=== PATIENT | male | born 1960 | race Caucasian/White ===

== ENCOUNTER → 2016-08-16 | Outpatient (CLI) | payer MEDICARE ==
--- NOTE | 2016-08-16 13:54 | MR ---
EXAMINATION TYPE: MR brain wo/w con DATE OF EXAM: 08/16/2016 1:43 PM COMPARISON: NONE HISTORY: Seizures TECHNIQUE: Multiplanar, multiecho imaging of the brain was obtained with and without intravenous adm inistration of 20 mL intravenous MultiHance. FINDINGS: Midline structures are unremarkable. There is a normal craniocervical junction. Echoplanar diffusion imaging is normal. There are normal vascular flow voids. The orbits are normal. There is no evidence of a CP angle mass lesion There are approximately 8 punctate subcortical 3 to 4 mm lesions on the left and perhaps one or 2 on the right. There is some artifact overlying the valeria. There is no mass effect, midline shift or intra cranial blood. Following intravenous administration of gadolinium I do not see evidence of abnormal enhancement. IMPRESSION: 1. NO ACUTE INTRACRANIAL ABNORMALITY. 2. TINY FLAIR LESIONS IN THE SUBCORTICAL YOON MATTER ON THE LEFT AND PERHAPS ONE OR 2 ON THE RIGHT. T HESE ARE NONSPECIFIC. A DIFFERENTIAL DIAGNOSIS INCLUDES SMALL VESSEL DISEASE, DEMYELINATION, HYPERTEN ISHMAEL, MIGRAINE HEADACHES AND LYME'S DISEASE.
== END | disposition home or self-care (01) ==
LOC: RADMRIMAIN 12:49
PROVIDERS: ATTEND Psychiatry & Neurology Pain Medicine
DX: G40.909 Epilepsy, unspecified, not intractable, without status epilepticus (principal)
CPT/HCPCS: 70553; A9577

== ENCOUNTER 2019-08-14 21:02 | Observation (INO) | payer MEDICARE, OTHER ==
[2019-08-14] MEDS ORDERED: SODIUM CHLORIDE 0.9% 500 ML 500 ML IV STA (21:23)
[2019-08-14 21:41] LABS: Basophils % (A) 1 %; Eosinophils # (A) 0.1 k/uL (0-0.7); Eosinophils % (A) 2 %; Lymphocytes # (A) 1.1 k/uL (1.0-4.8); Lymphocytes % (A) 25 %; MCH 32.7 pg (25.0-35.0); MCV 96.2 fL (80.0-100.0); Mean Platelet Volume 7.1; Monocytes # (A) 0.2 k/uL (0-1.0); Monocytes % (A) 5 %; Neutrophils # (A) 2.8 k/uL (1.3-7.7); Neutrophils % (A) 66 %; Platelet Count 195 k/uL (150-450); RBC 4.58 m/uL (4.30-5.90); RDW 12.7 % (11.5-15.5); WBC 4.3 k/uL (3.8-10.6)
[2019-08-14 21:51] LABS: ALT 21 U/L (4-49); AST 26 U/L (17-59); African American GFR (CKD) >90 (>60 ml/min/1.73 sqM); Albumin 4.5 g/dL (3.5-5.0); Alkaline Phosphatase 83 U/L (38-126); Anion Gap 7 mmol/L; Blood Urea Nitrogen 13 mg/dL (9-20); Calcium 8.7 mg/dL (8.4-10.2); Carbon Dioxide 26 mmol/L (22-30); Chloride 105 mmol/L (98-107); Glucose 109 mg/dL (74-99); Magnesium 1.8 mg/dL (1.6-2.3); Non-African American GFR(CKD) >90 (>60 ml/min/1.73 sqM); Potassium 4.2 mmol/L (3.5-5.1); Sodium 138 mmol/L (137-145); Total Bilirubin 0.6 mg/dL (0.2-1.3); Total Protein 6.6 g/dL (6.3-8.2)
--- NOTE | 2019-08-14 21:52 | XR ---
EXAMINATION TYPE: XR chest 2V DATE OF EXAM: 08/14/2019 COMPARISON: NONE HISTORY: Chest pain. TECHNIQUE: Frontal and lateral views of the chest are obtained. FINDINGS: Low lung volumes are present. There is no focal air space opacity, pleural effusion, or pne umothorax seen. The cardiac silhouette size is upper limits of normal. Overlying EKG leads. There is defibrillator battery pack without visualized defibrillator wires left anterior chest wall. IMPRESSION: No acute pulmonary process.
[2019-08-14 21:54] LABS: D-Dimer <0.17 mg/L FEU (<0.60); Partial Thromboplastin Time 24.7 sec (22.0-30.0); Prothrombin Time 10.1 sec (9.0-12.0)
[2019-08-14] MEDS ORDERED: NITROGLYCERIN SL TABS 0.4 MG TAB SUBLINGUAL PRN (22:52)
--- NOTE | 2019-08-14 22:58 | ED ---
General Adult HPI - General Source: EMS, RN notes reviewed, old records reviewed Mode of arrival: EMS Limitations: no limitations <Yayo Daniels - Last Filed: 08/14/19 22:51> <Braden Culver - Last Filed: 08/14/19 23:31> - General Chief complaint: Shortness of Breath Stated complaint: SOB Time Seen by Provider: 08/14/19 21:05 - History of Present Illness Initial comments: 59-year-old male patient past history significant for seizure disorder, patient reports that he had some sort of potential heart attack 15 years ago however has no stent placements during a seizure. Patient does have a defibrillator placed. Patient forced to beginning at approximately 3:00 today he had what he describes as substernal chest pressure, associated shortness of breath. Patient reports that this persisted until receive nitro by EMS. At time of evaluation patient is pain free. Systemic: Pt denies fatigue, fever/chills, rash. Pt denies weakness, night sweats, weight loss. Neuro: Pt denies headache, visual disturbances, syncope or pre-syncope. HEENT: Pt denies ocular discharge or irritation, otalgia, rhinorrhea, phar yngitis or notable lymphadenopathy. Cardiopulmonary: Pt denies heart palpitations. Abdominal/GI: Pt denies abdominal pain, n/v/d. : Pt denies dysuria, burning w/ urination, frequency/urgency. Denies new onset urinary or bowel incontinence. MSK: Pt denies myalgia, loss of strength or function in extremities. Neuro: Pt denies new onset weakness, paresthesias. (Yayo Daniels) - Related Data Allergies Allergy/AdvReac Type Severity Reaction Status Date / Time No Known Allergies Allergy Verified 08/14/19 21:24 Review of Systems ROS Other: All systems not noted in ROS Statement are negative. <Yayo Daniels - Last Filed: 08/14/19 22:51> ROS Other: All systems not noted in ROS Statement are negative. <Braden Culver - Last Filed: 08/14/19 23:31> ROS Statement: Those systems with pertinent positive or pertinent negative responses have been documented in the HPI. Past Medical History Past Medical History: Asthma, Myocardial Infarction ([place]), Seizure Disorder History of Any Multi-Drug Resistant Organisms: ESBL Date of last positivie culture/infection: 10/24/16 MDRO Source:: buttock Past Surgical History: Tonsillectomy Additional Past Surgical History / Comment(s): deep brain stimulator for seizures Past Psychological History: Depression, PTSD Smoking Status: Never smoker Past Alcohol Use History: Occasional Past Drug Use History: None Reported <JeremiahYayo Maicol - Last Filed: 08/14/19 22:51> General Exam Limitations: no limitations <Yayo Daniels - Last Filed: 08/14/19 22:51> - General Exam Comments Initial Comments: Constitutional: NAD, AOX3, Pt has pleasant affect. HEENT: NC/AT, trachea midline, neck supple, no lymphadenopathy. Posterior pharynx non erythematous, without exudates. External ears appear normal, without discharge. Mucous membranes moist. Eyes PERRLA, EOM intact. There is no scleral icterus. No pallor noted. Cardiopulmonary: RRR, no murmurs, rubs or gallops, no JVD noted. Lungs CTAB in anterior and posterior doherty. No peripheral edema. Abdominal exam: Abdomen soft and non-distended. Abdomen non-tender to palpation in all 4 quadrants. Bowel sounds active in LLQ. No hepatosplenomegaly. No ecchymosis Neuro: CN II-XII grossly intact. No nuchal rigidity. No raccon eyes, no patrick sign, no hemotympanum. No cervical spinal tenderness. MSK: No posterior calf tenderness bilaterally, homans sign negative bilaterally. Posterior tibialis and radial pulse +2 bilaterally. Sensation intact in upper and lower extremities. Full active ROM in upper and lower extremities, 5/5 stregnth. (Yayo Daniels) Course <Braden Culver - Last Filed: 08/14/19 23:31> Vital Signs 08/14/19 08/14/19 21:05 22:10 Temperature 97.0 F L Pulse Rate 65 62 Respiratory 20 18 Rate Blood Pressure 140/73 132/69 O2 Sat by Pulse 96 96 Oximetry - Reevaluation(s) Reevaluation #1: 08/14/19 23:30 PA supervision: I proceeded to evaluate this case patient did present with complains of chest pain. The presentation is consistent with ACS. Patient be admitted the case is discussed with Dr. Vin Cobos's [employer] GATE KEEPER (Braden Culver) Medical Decision Making - Lab Data Result diagrams: 08/14/19 21:16 08/14/19 21:16 - EKG Data -: EKG Interpreted by Me (and Dr. Culver ) <Yayo Daniels - Last Filed: 08/14/19 22:51> - Lab Data Result diagrams: 08/14/19 21:16 08/14/19 21:16 <Braden Culver - Last Filed: 08/14/19 23:31> - Medical Decision Making 59-year-old male patient past history significant for seizure disorder, patient reports that he had some sort of potential heart attack 15 years ago however has no stent placements during a seizure. Patient does have a defibrillator placed. Patient forced to beginning at approximately 3:00 today he had what he describes as substernal chest pressure, associated shortness of breath. Patient reports that this persisted until receive nitro by EMS. At time of evaluation patient is pain free. Patient relatively stable, afebrile. Physical exam densely acute pathology. EKG is nonischemic. Laboratory investigations are obtained and are overall noncompressive. D-dimer is negative. Troponin is neg ative. CXR revealed no acute process. Patient continues to be pain-free. Patient will be admitted for serial troponins and cardiology evaluation tomorrow. Case discussed with Dr. Culver. (Yayo Daniels) - Lab Data Lab Results 08/14/19 08/14/19 08/14/19 Range/Units 21:16 21:16 21:16 WBC 4.3 (3.8-10.6) k/uL RBC 4.58 (4.30-5.90) m/uL Hgb 15.0 (13.0-17.5) gm/dL Hct 44.0 (39.0-53.0) % MCV 96.2 (80.0-100.0) fL MCH 32.7 (25.0-35.0) pg MCHC 34.0 (31.0-37.0) g/dL RDW 12.7 (11.5-15.5) % Plt Count 195 (150-450) k/uL Neutrophils % 66 % Lymphocytes % 25 % Monocytes % 5 % Eosinophils % 2 % Basophils % 1 % Neutrophils # 2.8 (1.3-7.7) k/uL Lymphocytes # 1.1 (1.0-4.8) k/uL Monocytes # 0.2 (0-1.0) k/uL Eosinophils # 0.1 (0-0.7) k/uL Basophils # 0.0 (0-0.2) k/uL PT 10.1 (9.0-12.0) sec INR 1.0 (<1.2) APTT 24.7 (22.0-30.0) sec D-Dimer <0.17 (<0.60) mg/L FEU Sodium 138 (137-145) mmol/L Potassium 4.2 (3.5-5.1) mmol/L Chloride 105 (98-107) mmol/L Carbon Dioxide 26 (22-30) mmol/L Anion Gap 7 mmol/L BUN 13 (9-20) mg/dL Creatinine 0.90 (0.66-1.25) mg/dL Est GFR (CKD-EPI)AfAm >90 (>60 ml/min/1.73 sqM) Est GFR (CKD-EPI)NonAf >90 (>60 ml/min/1.73 sqM) Glucose 109 H (74-99) mg/dL Calcium 8.7 (8.4-10.2) mg/dL Magnesium 1.8 (1.6-2.3) mg/dL Total Bilirubin 0.6 (0.2-1.3) mg/dL AST 26 (17-59) U/L ALT 21 (4-49) U/L Alkaline Phosphatase 83 (38-126) U/L Troponin I (0.000-0.034) ng/mL NT-Pro-B Natriuret Pep pg/mL Total Protein 6.6 (6.3-8.2) g/dL Albumin 4.5 (3.5-5.0) g/dL 08/14/19 08/14/19 Range/Units 21:16 21:16 WBC (3.8-10.6) k/uL RBC (4.30-5.90) m/uL Hgb (13.0-17.5) gm/dL Hct (39.0-53.0) % MCV (80.0-100.0) fL MCH (25.0-35.0) pg MCHC (31.0-37.0) g/dL RDW (11.5-15.5) % Plt Count (150-450) k/uL Neutrophils % % Lymphocytes % % Monocytes % % Eosinophils % % Basophils % % Neutrophils # (1.3-7.7) k/uL Lymphocytes # (1.0-4.8) k/uL Monocytes # (0-1.0) k/uL Eosinophils # (0-0.7) k/uL Basophils # (0-0.2) k/uL PT (9.0-12.0) sec INR (<1.2) APTT (22.0-30.0) sec D-Dimer (<0.60) mg/L FEU Sodium (137-145) mmol/L Potassium (3.5-5.1) mmol/L Chloride (98-107) mmol/L Carbon Dioxide (22-30) mmol/L Anion Gap mmol/L BUN (9-20) mg/dL Creatinine (0.66-1.25) mg/dL Est GFR (CKD-EPI)AfAm (>60 ml/min/1.73 sqM) Est GFR (CKD-EPI)NonAf (>60 ml/min/1.73 sqM) Glucose (74-99) mg/dL Calcium (8.4-10.2) mg/dL Magnesium (1.6-2.3) mg/dL Total Bilirubin (0.2-1.3) mg/dL AST (17-59) U/L ALT (4-49) U/L Alkaline Phosphatase (38-126) U/L Troponin I <0.012 (0.000-0.034) ng/mL NT-Pro-B Natriuret Pep 100 pg/mL Total Protein (6.3-8.2) g/dL Albumin (3.5-5.0) g/dL - EKG Data EKG Comments: Ventricular rate 66, plan: 70, QRS 84, QT/QTC 380/398. Normal sinus rhythm, nonspecific T-wave abnormality. No concern for acute ischemia at this time. (Yayo Daniels) Disposition Is patient prescribed a controlled substance at d/c from ED?: No <Yayo Daniels - Last Filed: 08/14/19 22:51> <Braden Culver - Last Filed: 08/14/19 23:31> Clinical Impression: Chest pain Disposition: ADMITTED IP TO THIS HOSP Condition: Serious
[2019-08-15] MEDS: HEPARIN SODIUM,PORCINE 5,000 UNIT/ML 1 ML VIAL SQ SCH ×4 (01:14→23:39)
[2019-08-15] MEDS: MORPHINE SULFATE 4 MG/ML SYRINGE IVP PRN ×2 (01:14→05:53)
[2019-08-15 03:14] LABS: Cholesterol 164 mg/dL (<200); HDL Cholesterol 27 mg/dL (40-60); LDL Cholesterol,Calculated 95 mg/dL (0-99); Triglycerides 212 mg/dL (<150)
[2019-08-15] MEDS ORDERED: ASPIRIN 325 MG TAB PO SCH (09:00)
[2019-08-15] MEDS: PANTOPRAZOLE 40 MG TABLET PO SCH (10:03)
[2019-08-15] MEDS ORDERED: OXcarbazepine 300 MG TAB PO PRN (10:24)
--- NOTE | 2019-08-15 11:35 | P.HPIM ---
History of Present Illness 9-year-old male with known history of seizure disorder came in with complains of chest pain on the right side of the chest shoulder pain as well as a upper and lower thoracic back pain. Patient's pain is sharp in nature nonradiating and associated lightheadedness shortness of breath not associated with food nonpleuritic in nature. EKG showed some nonspecific T-wave changes beyond that no other significant abnormality patient is mildly sinus bradycardic. Troponins are negative. Review of Systems REVIEW OF SYSTEMS: CONSTITUTIONAL: No fever, no malaise, no fatigue. HEENT: No recent visual problems or hearing problems. Denied any sore throat. CARDIOVASCULAR: No orthopnea, PND, no palpitations, no syncope. PULMONARY: No shortness of breath, no cough, no hemoptysis. GASTROINTESTINAL: No diarrhea, no nausea, no vomiting, no abdominal pain. NEUROLOGICAL: No headaches, no weakness, no numbness. HEMATOLOGICAL: Denies any bleeding or petechiae. GENITOURINARY: Denies any burning micturition, frequency, or urgency. MUSCULOSKELETAL/RHEUMATOLOGICAL: As mentioned in HPI ENDOCRINE: Denies any polyuria or polydipsia. The rest of the 14-point review of systems is negative. Past Medical History Past Medical History: Asthma, Cancer, Myocardial Infarction ([place]), Seizure Disorder Additional Past Medical History / Comment(s): vocal cord cancer Last Myocardial Infarction Date:: 2004 History of Any Multi-Drug Resistant Organisms: ESBL Date of last positivie culture/infection: 10/24/16 MDRO Source:: buttock Past Surgical History: Tonsillectomy Additional Past Surgical History / Comment(s): deep brain stimulator for seizures Past Psychological History: Depression, PTSD Smoking Status: Never smoker Past Alcohol Use History: Occasional Past Drug Use History: None Reported Medications and Allergies Home Medications Medication Instructions Recorded Confirmed Type Citalopram Hydrobromide 40 mg PO DAILY 08/15/19 08/15/19 History [Citalopram HBr] Donepezil [Aricept] 20 mg PO HS 08/15/19 08/15/19 History L.acidoph,Paracasei, B.lactis 1 cap PO DAILY 08/15/19 08/15/19 History [Probiotic] Multivitamins, Thera [Multivitamin 1 tab PO DAILY 08/15/19 08/15/19 History (formulary)] OXcarbazepine 600 mg PO TID PRN 08/15/19 08/15/19 History Prazosin [Minipress] 1 mg PO HS 08/15/19 08/15/19 History Primidone [Mysoline] 200 mg PO HS 08/15/19 08/15/19 History Topiramate [Topamax] 300 mg PO DAILY 08/15/19 08/15/19 History lamoTRIgine 200 mg PO BID 08/15/19 08/15/19 History lamoTRIgine [LaMICtal] 50 mg PO DAILY 08/15/19 08/15/19 History Allergies Allergy/AdvReac Type Severity Reaction Status Date / Time Penicillins Allergy Anaphylaxis Verified 08/15/19 09:34 prednisone Allergy Anaphylaxis Verified 08/15/19 09:34 Physical Exam Vitals: Vital Signs Temp Pulse Pulse Resp BP BP BP 08/15/19 08:06 97.9 F 61 18 110/61 08/15/19 04:54 97.8 F 56 L 18 114/57 08/15/19 00:30 97.7 F 60 18 125/60 08/14/19 22:10 62 18 132/69 08/14/19 21:05 97.0 F L 65 20 140/73 Pulse Ox 08/15/19 08:06 93 L 08/15/19 04:54 95 08/15/19 00:30 98 08/14/19 22:10 96 08/14/19 21:05 96 Intake and Output 08/14/19 08/15/19 08/15/19 22:59 06:59 14:59 Other: Voiding Method Toilet # Voids 1 Weight 106.594 kg 111 kg PHYSICAL EXAMINATION: GENERAL: The patient is alert and oriented x3, not in any acute distress. Well developed, well nourished. HEENT: Pupils are round and equally reacting to light. EOMI. No scleral icterus. No conjunctival pallor. Normocephalic, atraumatic. No pharyngeal erythema. No thyromegaly. CARDIOVASCULAR: S1 and S2 present. No murmurs, rubs, or gallops. PULMONARY: Chest is clear to auscultation, no wheezing or crackles. ABDOMEN: Soft, nontender, nondistended, normoactive bowel sounds. No palpable organomegaly. MUSCULOSKELETAL: Patient has reproducible chest pain that is a subtle spasm and tenderness in the throat thoracic spine area. Patient active and. Passive m otions of right shoulder restricted patient cannot lift his arm beyond 90 EXTREMITIES: No cyanosis, clubbing, or pedal edema. NEUROLOGICAL: Gross neurological examination did not reveal any focal deficits. SKIN: No rashes. Results CBC & Chem 7: 08/14/19 21:16 08/14/19 21:16 Labs: Abnormal Lab Results - Last 24 Hours (Table) 08/14/19 08/15/19 Range/Units 21:16 02:47 Glucose 109 H (74-99) mg/dL Triglycerides 212 H (<150) mg/dL HDL Cholesterol 27 L (40-60) mg/dL Thrombosis Risk Factor Assmnt - Choose All That Apply Any of the Below Risk Factors Present?: Yes Each Factor Represents 1 point: Age 41-60 years, Obesity (BMI >25) Thrombosis Risk Factor Assessment Total Risk Factor Score: 2 Thrombosis Risk Factor Assessment Level: Low Risk Assessment and Plan Plan: -Chest pain: Appears to be musculoskeletal noncardiac. He was consulted further management as per them be ruled out acute coronary syndromes. -Right shoulder pain and thoracic spine degenerative disc disease: Patient will be started on nonsteroidal anti-inflammatory medications and concerned with rotator cuff injury, chronic surgery will be consulted and this nonemergent can be seen in the clinic as well. -Asthma without any acute exception -seizure disorder: Patient is in the brainstem later for this and will be resumed on his home medications for his seizures -PTSD and depression -History of laryngeal cancer in the past
--- NOTE | 2019-08-15 11:58 | XR ---
EXAMINATION TYPE: XR shoulder complete RT , 3 VIEWS DATE OF EXAM ORDERED: 08/15/2019 HISTORY: shoulder pain. COMPARISON: None. FINDINGS: No fracture, dislocation or other acute osseous lesion is seen. IMPRESSION: NO ACUTE OSSEOUS LESION.
--- NOTE | 2019-08-15 11:59 | XR ---
EXAMINATION TYPE: XR thoracic spine complete , , 3 VIEWS DATE OF EXAM ORDERED: 08/15/2019 HISTORY: back pain. COMPARISON: None. FINDINGS: There is a mild levoscoliosis. There is degenerative disc disease and hypertrophic spondylosis in the lower cervical spine. Within the dorsal spine, vertebral body height and alignment are maintained. No fractures are seen. T he pedicles are intact. Paraspinal soft tissues are normal. IMPRESSION: NO ACUTE OSSEOUS LESION.
--- NOTE | 2019-08-15 12:31 | CONS ---
CONSULTATION CHIEF COMPLAINT: Chest pain. HISTORY OF PRESENT ILLNESS: This is a 59-year-old gentleman with history of seizure disorder who has a stimulator, came to the hospital complaining of chest pain. His chest discomfort is sharp, precordial, atypical, and at the time of my evaluation, appears pain free and is hemodynamically stable. An EKG on him shows sinus bradycardia with non-specific ST-T wave changes. I advised the patient to undergo an echocardiogram and a dobutamine echo tomorrow. If these are negative, he may be discharged home. SOCIAL HISTORY: Denies current smoking, EtOH abuse or drug abuse. PAST MEDICAL HISTORY: Past medical history is negative for hypertension, diabetes, dyslipidemia; is significant for seizures. CURRENT MEDICATIONS: Current medications include Aricept, citalopram, Minipress, Mysoline, Topamax, and Lamictal. ALLERGIES: ALLERGIC TO PENICILLIN AND PREDNISONE. FAMILY HISTORY: Negative for premature coronary artery disease. REVIEW OF SYSTEMS: Unremarkable other than what has been mentioned so far. EXAM: The patient is comfortable at rest. Vital signs are stable. There is no jugular venous distention. Chest exam reveals good air entry bilaterally. Heart exam reveals first and second heart sounds. No gallop. No murmur. Abdomen is soft, nontender. Exam of the extremities did not reveal any edema. Peripheral pulses are felt. LABORATORY DATA: Labs show that three sets of troponins are negative. ASSESSMENT: Precordial chest pain, sharp, atypical, probably noncardiac. PLAN: The patient will undergo a stress test tomorrow. If this is negative, send him home. MMODL / IJN: [id number] /
[2019-08-15] MEDS: KETOROLAC 30 MG/ML 1 ML VIAL IVP PRN (15:46)
[2019-08-15] MEDS: lamoTRIgine 100 MG TAB PO SCH (20:19)
[2019-08-15] MEDS ORDERED: DONEPEZIL 10 MG TAB PO SCH (21:00)
[2019-08-15] MEDS ORDERED: PRAZOSIN 1 MG CAP PO SCH (21:00)
[2019-08-15] MEDS ORDERED: PRIMIDONE 50 MG TAB PO SCH (21:00)
[2019-08-16 07:04] VITALS: RESP 18
[2019-08-16] MEDS ORDERED: DOBUTamine DRIP for NUC MED 500 MG in DEXTROSE/WATER 1 250ML.BAG IV ONE (08:15)
[2019-08-16] MEDS: lamoTRIgine 100 MG TAB PO SCH (08:26)
[2019-08-16] MEDS: PANTOPRAZOLE 40 MG TABLET PO SCH (08:26)
[2019-08-16] MEDS: HEPARIN SODIUM,PORCINE 5,000 UNIT/ML 1 ML VIAL SQ SCH ×2 (08:27→16:06)
[2019-08-16] MEDS: KETOROLAC 30 MG/ML 1 ML VIAL IVP PRN (08:36)
[2019-08-16] MEDS ORDERED: lamoTRIgine 25 MG TAB PO SCH (09:00)
[2019-08-16] MEDS ORDERED: ASPIRIN 81 MG PO SCH (09:00)
[2019-08-16] MEDS ORDERED: TOPIRAMATE 100 MG TAB PO SCH (09:00)
[2019-08-16] MEDS ORDERED: CITALOPRAM HYDROBROMIDE 20 MG TAB PO SCH (09:00)
--- NOTE | 2019-08-16 09:45 | ECHOF ---
Referral Reason:chest pain MEASUREMENTS -------- HEIGHT: 180.3 cm WEIGHT: 110.7 kg BP: RVIDd: 2.9 cm (< 3.3) IVSd: 1.2 cm (0.6 - 1.1) LVIDd: 4.1 cm (3.9 - 5.3) LVPWd: 1.4 cm (0.6 - 1.1) IVSs: 2.1 cm LVIDs: 1.9 cm LVPWs: 2.4 cm Ao Diam: 3.9 cm (2.0 - 3.7) AV Cusp: 2.7 cm (1.5 - 2.6) LA Diam: 3.2 cm (2.7 - 3.8) MV EXCURSION: 21.020 mm (> 18.000) MV EF SLOPE: 93 mm/s (70 - 150) EPSS: 0.3 cm MV E Ed: 0.62 m/s MV DecT: 173 ms MV A De: 0.65 m/s MV E/A Ratio: 0.96 RAP: 5.00 mmHg RVSP: 26.90 mmHg FINDINGS -------- Sinus rhythm. This was a technically good study. The left ventricular size is normal. There is mild concentric left ventricular hypertrophy. Overa ll left ventricular systolic function is normal with, an EF between 55 - 60 %. The right ventricle is normal in size. The left atrial size is normal. The right atrial size is normal. The aortic valve is trileaflet, and appears structurally normal. No aortic stenosis or regurgitation. The mitral valve is normal. There is trace mitral regurgitation. The tricuspid valve appears structurally normal. Trace tricuspid regurgitation present. Right rosemary tricular systolic pressure is normal at < 35 mmHg. Trace/mild (physiologic) pulmonic regurgitation. The aortic root is dilated measuring 3.9 cm. Normal inferior vena cava with normal inspiratory collapse consistent with estimated right atrial pre ssure of 5 mmHg. There is no pericardial effusion. CONCLUSIONS -------- 1. Sinus rhythm. 2. This was a technically good study. 3. The left ventricular size is normal. 4. There is mild concentric left ventricular hypertrophy. 5. Overall left ventricular systolic function is normal with, an EF between 55 - 60 %. 6. The left atrial size is normal. 7. The aortic valve is trileaflet, and appears structurally normal. No aortic stenosis or regurgitati on. 8. There is trace mitral regurgitation. 9. Trace tricuspid regurgitation present. 10. Right ventricular systolic pressure is normal at < 35 mmHg. 11. Trace/mild (physiologic) pulmonic regurgitation. 12. The aortic root is dilated measuring 3.9 cm 13. Normal inferior vena cava with normal inspiratory collapse consistent with estimated right atrial pressure of 5 mmHg. 14. There is no pericardial effusion. INFORMATION MANAGEMENT MANAGER: Kalina Navarro RDCS
--- NOTE | 2019-08-16 10:17 | P.PN ---
Subjective This is a 59-year-old male past medical history significant for asthma, seizures and depression. He is seen and examined laying flat in bed in no acute distress. He continues to have reproducible right sided chest pain that is worse with deep inspiration and worsened by palpation of the area. He denies shortness of breath, dizziness or palpitations. Blood pressure 117/56 heart rate 57 afebrile maintaining oxygen saturation on room air. GENERAL: Well-appearing, well-nourished and in no acute distress. NECK: Supple without JVD or thyromegaly. LUNGS: Breath sounds clear to auscultation bilaterally. Respiration equal and unlabored. No wheezes, rales or rhonchi. HEART: Regular rate and rhythm without murmurs, rubs or gallops. S1 and S2 heard. EXTREMITIES: Normal range of motion, no edema. No clubbing or cyanosis. Peripheral pulses intact. ASSESSMENT Chest pain, atypical. Reproducible, likely related to underlying musculoskel etal injury. PLAN Proceed with dobutamine stress echocardiogram as previously recommended. If stress test is normal he may be discharged from a cardiac perspective. Follow-up in the office with Dr. Abrams in 2-3 weeks. Nurse Practitioner note has been reviewed, I agree with a documented findings an d plan of care. Patient was seen and examined. Objective - Vital Signs Vital signs: Vital Signs Temp 97.8 F 08/16/19 07:02 Pulse 57 L 08/16/19 08:00 Resp 18 08/16/19 08:00 BP 117/56 08/16/19 07:02 Pulse Ox 94 L 08/16/19 07:02 Intake & Output 08/15/19 08/16/19 08/16/19 18:59 06:59 18:59 Intake Total 860 240 Balance 860 240 Weight 107.9 kg Intake: Oral 660 240 Other 200 Other: Voiding Method Toilet Toilet Toilet - Labs CBC & Chem 7: 08/14/19 21:16 08/14/19 21:16
--- NOTE | 2019-08-16 10:28 | ECHOS ---
STRESS ECHOCARDIOGRAM INDICATIONS: Chest pain. MEDICATIONS: Aricept, Citalopram, Minipress, Mysoline, Topamax, Lamictal. BASELINE HEART RATE: 53 BASELINE BLOOD PRESSURE: 130/69 MAXIMUM HEART RATE: 140 MAXIMUM BLOOD PRESSURE: 183/44 85% MPHR: 137 100% MPHR: 161 MAXIMUM STAGE REACHED: 4 TOTAL EXERCISE TIME: 12:00 CLINICAL INFORMATION: Baseline rhythm is a sinus mechanism, rate 53, normal axis and intervals, normal echocardiogram. Baseline blood pressure 130/69 mmHg. Patient received infusion of dobutamine per protocol, peak rate 140 beats per minute which is equal to 87% maximum predicted heart rate. Peak blood pressure 183/44 mmHg. Electrocardiograph monitoring revealed rare PVCs. There was no evidence of diagnostic ischemic ST deviation. FINDINGS: Baseline echocardiogram revealed normal wall motion. At peak exercise, there was normal wall motion augmentation with no hypokinesis or dyskinesis. CONCLUSION: 1. Normal echocardiograph response to dobutamine infusion with rare premature ventricular contractions. 2. Normal stress echocardiogram with no evidence of stress-induced ischemia. MMODL / IJN: [id number] /
--- NOTE | 2019-08-16 11:46 | P.DS ---
Providers Date of admission: 08/14/19 22:56 Attending physician: Gavi Banuelos Consults: 08/14/19 22:52 Consult Physician Urgent Consulting Provider: Kell Stacy Consult Reason/Comments: chest pain Do you want consulting provider notified?: Yes 08/15/19 11:20 Consult Physician Routine Consulting Provider: Betty Benitez Consult Reason/Comments: shoulder pain Do you want consulting provider notified?: Yes Primary care physician: Tennille Guaman Hospital Course: 59-year-old male came in with compensative from right-sided chest pain appears to be musculoskeletal patient has shoulder pain as well as back pain. Shoulder x-ray and back x-ray essentially within normal limits. Rule out a concurrent syndromes and patient had a dobutamine stress test which did not show any inducible ischemia patient will be evaluated by arthritic surgery may need an outpatient MRI of the right shoulder. Patient will be discharged after evaluation by orthopedic surgery on meloxicam and the Pepcid. PHYSICAL EXAMINATION: GENERAL: The patient is alert and oriented x3, not in any acute distress. Well developed, well nourished. HEENT: Pupils are round and equally reacting to light. EOMI. No scleral icterus. No conjunctival pallor. Normocephalic, atraumatic. No pharyngeal erythema. No thyromegaly. CARDIOVASCULAR: S1 and S2 present. No murmurs, rubs, or gallops. PULMONARY: Chest is clear to auscultation, no wheezing or crackles. ABDOMEN: Soft, nontender, nondistended, normoactive bowel sounds. No palpable organomegaly. MUSCULOSKELETAL: Patient has reproducible chest pain that is a subtle spasm and tenderness in the throat thoracic spine area. Patient active and. Passive motions of right shoulder restricted patient cannot lift his arm beyond 90 EXTREMITIES: No cyanosis, clubbing, or pedal edema. NEUROLOGICAL: Gross neurological examination did not reveal any focal deficits. SKIN: No rashes. His pain in the shoulder is actually bit better today Rest the medical problems and hospitalization course refer to my HPI from yesterday Patient Condition at Discharge: Serious Plan - Discharge Summary New Discharge Prescriptions: New Meloxicam [Mobic] 15 mg PO DAILY PRN #30 tab PRN Reason: Pain Famotidine [Pepcid] 20 mg PO BID #30 tablet Continue lamoTRIgine 200 mg PO BID Donepezil [Aricept] 20 mg PO HS Citalopram Hydrobromide [Citalopram HBr] 40 mg PO DAILY Primidone [Mysoline] 200 mg PO HS Prazosin [Minipress] 1 mg PO HS OXcarbazepine 600 mg PO TID PRN PRN Reason: Seizures lamoTRIgine [LaMICtal] 50 mg PO DAILY Topiramate [Topamax] 300 mg PO DAILY Multivitamins, Thera [Multivitamin (formulary)] 1 tab PO DAILY L.acidoph,Paracasei, B.lactis [Probiotic] 1 cap PO DAILY Discharge Medication List Citalopram Hydrobromide [Citalopram HBr] 40 mg PO DAILY 08/15/19 [History] Donepezil [Aricept] 20 mg PO HS 08/15/19 [History] L.acidoph,Paracasei, B.lactis [Probiotic] 1 cap PO DAILY 08/15/19 [History] Multivitamins, Thera [Multivitamin (formulary)] 1 tab PO DAILY 08/15/19 [History] OXcarbazepine 600 mg PO TID PRN 08/15/19 [History] Prazosin [Minipress] 1 mg PO HS 08/15/19 [History] Primidone [Mysoline] 200 mg PO HS 08/15/19 [History] Topiramate [Topamax] 300 mg PO DAILY 08/15/19 [History] lamoTRIgine 200 mg PO BID 08/15/19 [History] lamoTRIgine [LaMICtal] 50 mg PO DAILY 08/15/19 [History] Famotidine [Pepcid] 20 mg PO BID #30 tablet 08/16/19 [Rx] Meloxicam [Mobic] 15 mg PO DAILY PRN #30 tab 08/16/19 [Rx] Follow up Appointment(s)/Referral(s): Rowena Null MD [Primary Care Provider] - 3 Days Betty Benitez DO [Doctor of Osteopathic Medicine] - 1 Week Shailesh Abrams MD [STAFF PHYSICIAN] - 09/02/19 3:45 pm
[2019-08-16 15:51] VITALS: BP 119/63; PULSE 68; TEMP 98
--- NOTE | 2019-08-16 15:52 | P.CNOR ---
<Omi Vinson - Last Filed: 08/16/19 15:49> History of Present Illness - [facility] Consult date: 08/16/19 History of present illness: This patient is a 59-year-old male past medical history of epilepsy that presented to [facility] 08/14/19 with complaints of chest pain. The patient also complained of right shoulder pain upon arrival to the emergency department, x-rays were taken of the right shoulder, which revealed no abnormalities. The patient was admitted to the observation unit under the care of internal medicine with a consult placed to orthopedic surgery for further evaluation of his right shoulder pain. At the time of my exam, the patient complains of pain along the right anterior chest wall with radiation into the right upper arm. He states that this pain began around the same time as his left sided chest pain, although his left-sided chest pain has been relieved with medication. The right sided chest pain has remained constant since admission. The pain is constant, although it is exacerbated with movement of the right shoulder. The pain is in not changed with deep breathing. He denies trauma to the right chest for right shoulder. He denies swelling, erythema, ecchymosis of this area. He denies neck pain. He denies numbness or tingling of the right upper extremity. Patient denies fevers, chills, nausea, vomiting. He has no additional complaints at the time of exam. Vital signs stable. Past Medical History Past Medical History: Asthma, Cancer, Myocardial Infarction ([place]), Seizure Disorder Additional Past Medical History / Comment(s): vocal cord cancer Last Myocardial Infarction Date:: 2004 History of Any Multi-Drug Resistant Organisms: ESBL Year Discovered:: 10/24/16 MDRO Source:: buttock Past Surgical History: Tonsillectomy Additional Past Surgical History / Comment(s): deep brain stimulator for s eizures Past Psychological History: Depression, PTSD Smoking Status: Never smoker Past Alcohol Use History: Occasional Past Drug Use History: None Reported Medications and Allergies Home Medications Medication Instructions Recorded Confirmed Type Citalopram Hydrobromide 40 mg PO DAILY 08/15/19 08/15/19 History [Citalopram HBr] Donepezil [Aricept] 20 mg PO HS 08/15/19 08/15/19 History L.acidoph,Paracasei, B.lactis 1 cap PO DAILY 08/15/19 08/15/19 History [Probiotic] Multivitamins, Thera [Multivitamin 1 tab PO DAILY 08/15/19 08/15/19 History (formulary)] OXcarbazepine 600 mg PO TID PRN 08/15/19 08/15/19 History Prazosin [Minipress] 1 mg PO HS 08/15/19 08/15/19 History Primidone [Mysoline] 200 mg PO HS 08/15/19 08/15/19 History Topiramate [Topamax] 300 mg PO DAILY 08/15/19 08/15/19 History lamoTRIgine 200 mg PO BID 08/15/19 08/15/19 History lamoTRIgine [LaMICtal] 50 mg PO DAILY 08/15/19 08/15/19 History Famotidine [Pepcid] 20 mg PO BID #30 tablet 08/16/19 Rx Meloxicam [Mobic] 15 mg PO DAILY PRN #30 tab 08/16/19 Rx Allergies Allergy/AdvReac Type Severity Reaction Status Date / Time Penicillins Allergy Anaphylaxis Verified 08/15/19 09:34 prednisone Allergy Anaphylaxis Verified 08/15/19 09:34 Physical Examination On examination, the patient is sitting up in bed in no apparent distress. He is alert and oriented 3. His head appears normocephalic and atraumatic. His breathing appears nonlabored. On inspection of the right chest, right shoulder there is no ecchymosis, erythema, skin discoloration, swelling. There are no o pen wounds or lacerations. There is moderate pain on palpation of the pectoralis major. No tenderness to palpation of the right clavicle, right shoulder, right upper arm, elbow, forearm, wrist. There is no pain on palpation of the proximal biceps tendon. Patient is able to achieve 90 of forward flexion, 90 of abduction of the shoulder. Patient states he cannot achieve more motion secondary to pain in the pectoralis major. There is no significant pain with empty can testing. No pain with passive range of motion of the elbow or wrist. Motor and sensory function appear to be intact of the right upper extremity. Right upper extremity is warm and well-perfused with brisk capillary refill distally. Right radial pulse +2. Results Right shoulder x-ray 08/15/19: No acute fractures or dislocations. - Labs Labs: H & H 08/14/19 Range/Units 21:16 Hgb 15.0 (13.0-17.5) gm/dL Hct 44.0 (39.0-53.0) % Coagulation 08/14/19 Range/Units 21:16 INR 1.0 (<1.2) Result Diagrams: 08/14/19 21:16 08/14/19 21:16 Assessment and Plan Assessment: Possible pectoralis major strain, right. Plan: - I explained the clinical and imaging findings with the patient. The patient was also discussed with Dr. Dotson. Recommended symptomatic treatment at this time. - Recommended rest and ice/heat compresses. Recommended either oral anti- inflammatories/tylenol or topical Lidoderm patch for pain control. - Patient may work on gentle [id number] of the right shoulder and arm as tolerated. - Patient may follow-up in the office with Dr. Dotson as needed, if his pa in continues. <Erick Dotson - Last Filed: 08/17/19 11:56> Results - Labs Labs: H & H 08/14/19 Range/Units 21:16 Hgb 15.0 (13.0-17.5) gm/dL Hct 44.0 (39.0-53.0) % Coagulation 08/14/19 Range/Units 21:16 INR 1.0 (<1.2) Result Diagrams: 08/14/19 21:16 08/14/19 21:16 Assessment and Plan Plan: Reviewed and agree with above (amendments/corrections noted below). The patient was subsequently seen and examined by me as well. S: He states that the right-side symptoms started at the same time as the left side chest pain. He denies any strain, injury or inciting event. This hurts at rest, but worse with use. O: No erythema, ecchymosis, edema or gross asymmetry of the anterior chest. Prominent tenderness to palpation over the entire right pectoralis major muscle belly, but minimal at the insertion. No subcutaneous crepitus. He does have pain with resisted flexion and adduction of the arm. Minimal pain with passive internal and external rotation. No bony tenderness around the proximal humerus, scapula, AC joint or clavicle. A: Acute right chest/shoulder pain - likely musculoskeletal etiology. P: I discussed the clinical findings in detail with the patient. In the absence of trauma or injury, his exam is most consistent with an acute inflammatory p rocess affecting the pectoralis major muscle. I recommended initial observation symptomatic treatment with relative rest, warm and/or cold compresses and PRN analgesics. If okay with the cardiology team, he may try a brief course of regular NSAIDs (e.g., naproxen or ibuprofen) for 5- 7 days to decrease pain and inflammation. I also suggested trying topical therapy with a Lidoderm patch. Questions were invited and answered. He was understanding and agreement with this plan. If he has persistent symptoms in 7-10 days, I recommend he contact our office to set up a telemetry health video appointment for reevaluation and to discuss further treatment options. Thank you for allowing us to participate in the care of this patient. Erick Dotson D.O. [facility]
[2019-08-16] MEDS ORDERED: LIDOCAINE 5% PATCH TOPICAL SCH (16:15)
== END 2019-08-16 16:51 | disposition home or self-care (01) ==
LOC: EC 21:02 → 3SCARD 22:56 → 1SOBS 08-15 07:50
PROVIDERS: ADMIT Internal Medicine; ATTEND Internal Medicine
DX: R07.89 Other chest pain (principal); M25.511 Pain in right shoulder; J45.909 Unspecified asthma, uncomplicated; M51.34 Other intervertebral disc degeneration, thoracic region; G40.909 Epilepsy, unspecified, not intractable, without status epilepticus; R42 Dizziness and giddiness; F43.10 Post-traumatic stress disorder, unspecified; F32.9 Major depressive disorder, single episode, unspecified; R00.1 Bradycardia, unspecified; E66.9 Obesity, unspecified; Z68.34 Body mass index [BMI] 34.0-34.9, adult; Z79.899 Other long term (current) drug therapy; Z88.0 Allergy status to penicillin; Z16.12 Extended spectrum beta lactamase (ESBL) resistance; I25.2 Old myocardial infarction; Z97.8 Presence of other specified devices; Z85.21 Personal history of malignant neoplasm of larynx; Z95.810 Presence of automatic (implantable) cardiac defibrillator
CPT/HCPCS: 93005 ×2; 96372 ×2; 96374; 96375; 96376 ×2; 96361; 99285; 36415; 93306; 93351; 85379; 83880; 80061; 80053; 83735; 84484 ×2; 85025; 85610; 85730; 72072; 73030; 71046; G0378 ×4; J1250; J2270; J1644 ×2; J1885 ×2

== ENCOUNTER → 2020-03-22 | Outpatient (CLI) | payer MEDICARE ==
[2020-03-23 05:30] LABS: T4, Free (Free Thyroxine) 0.8 ng/dL (0.80-1.80)
== END | disposition home or self-care (01) ==
LOC: LABWHC1 14:26
PROVIDERS: ATTEND Internal Medicine
DX: E03.9 Hypothyroidism, unspecified (principal); D50.9 Iron deficiency anemia, unspecified
CPT/HCPCS: 36415; 82607; 83540; 84439; 84443; 84481